=== PATIENT | female | born 1960 | race Caucasian/White ===

== ENCOUNTER 2021-11-09 09:13 | Outpatient (RCR) | payer SELFPAY ==
[2021-11-09 10:58] LABS: ABSOLUTE RETIC # 46 10e9/uL (24-90); BASOPHILS # (AUTO) 0.1 10^3/uL (0.0-0.1); BASOPHILS % (AUTO) 1 % (0-10); EOSINOPHILS # (AUTO) 0.3 10^3/uL (0.0-0.3); EOSINOPHILS % (AUTO) 3 % (0-10); HEMATOCRIT 34 % (35-52); HEMOGLOBIN 11.3 g/dL (11.5-16.0); LYMPHOCYTES # (AUTO) 3.8 10^3/uL (1.0-4.0); LYMPHOCYTES % (AUTO) 38 % (12-44); MEAN CORPUSCULAR HEMOGLOBIN 29 pg (25-34); MEAN CORPUSCULAR HGB CONC 33 g/dL (32-36); MEAN CORPUSCULAR VOLUME 88 fL (80-99); MEAN PLATELET VOLUME 10.4 fL (9.0-12.2); MONOCYTES # (AUTO) 0.5 10^3/uL (0.0-1.0); MONOCYTES % (AUTO) 6 % (0-12); NEUTROPHILS # (AUTO) 5.1 10^3/uL (1.8-7.8); NEUTROPHILS % (AUTO) 52 % (42-75); PLATELET COUNT 344 10^3/uL (130-400); RETICULOCYTE % 1.18 % (0.50-2.40); WHITE BLOOD COUNT 9.8 10^3/uL (4.3-11.0)
== END 2021-12-04 | disposition home or self-care (01) ==
LOC: ONC 09:13
PROVIDERS: ATTEND Internal Medicine Hematology & Oncology
DX: D64.9 Anemia, unspecified (principal)
CPT/HCPCS: 83615; 85025; 85045; G0463; 36415; 99214

== ENCOUNTER 2022-08-31 06:36 | Outpatient (CLI) | payer OTHER ==
[~2022-08-31] VITALS: Ht 157.5 cm; Wt 107.0 kg
[2022-09-07] MEDS ORDERED: CYAN-41 PO (10:05)
[2022-09-07] MEDS ORDERED: ATOR40TA70 PO (10:05)
[2022-09-07] MEDS ORDERED: FERR-84 PO (10:05)
[2022-09-07] MEDS ORDERED: LISI1TAB48 PO (10:05)
[2022-09-07] MEDS ORDERED: VNL75T PO (10:05)
[2022-09-07] MEDS ORDERED: METF-397 PO ×2 (10:05)
== END 2022-09-07 10:13 | disposition home or self-care (01) ==
LOC: PREOP 06:36
PROVIDERS: ATTEND Surgery
DX: Z01.818 Encounter for other preprocedural examination (principal)

== ENCOUNTER 2022-09-12 10:35 | Day surgery (SDC) | payer OTHER ==
[~2022-09-12] VITALS: Ht 158 cm; Wt 107.0 kg
[~2022-09-12 10:35] MED LIST: ATOR40TA70 PO; CYAN-41 PO; FERR-84 PO; LISI1TAB48 PO; METF-397 PO; VNL75T PO
[2022-09-12] MEDS ORDERED: LACTATED RINGERS 1,000 ML IV STA (10:36)
[2022-09-12] MEDS ORDERED: HURRICAINE EXT TUBE (BENZOCAINE) XX PRN (10:45)
[2022-09-12 10:48] VITALS: BP 148/77
[2022-09-12] MEDS ORDERED: PROPOFOL INJECTION 50 ML IV ONE (10:49)
[2022-09-12] MEDS ORDERED: MIDAZOLAM 2 MG/2 ML (VERSED) VIAL ONE (10:49)
--- NOTE | 2022-09-12 10:50 | Progress Note-Pre Operative ---
Pre-Operative Progress Note Date of Available H&P: Aug 25, 2022 Date H&P Reviewed: Sep 12, 2022 Time H&P Reviewed: 10:47 History & Physical: H&P Reviewed, Patient Examed, No changes noted Pre-Operative Diagnosis: Anemia, Screening colonoscopy LIAM HUTCHINSON DO Sep 12, 2022 10:49
--- NOTE | 2022-09-12 11:36 | Progress Note-Post Operative ---
Post-Operative Progess Note Surgeon (s)/Cupola Melter Helper (s) Surgeon LIAM HUTCHINSON DO Cupola Melter Helper: JEANNIE MaII Pre-Operative Diagnosis Anemia, Screening colonoscopy Post-Operative Diagnosis Esophagitis hiatal hernia int hemorrhoids Procedure & Operative Findings Date of Procedure 09/12/22 Procedure Performed/Findings EGD with biopsy Colonoscopy PROCEDURE NOTE: After informed consent was obtained, the patient was brought to the endoscopy suite, placed in bed in left lateral decubitus position. She was administered IV sedation by the ANIMATOR who then monitored vitals the entire time, heart rate, blood pressure and pulse ox and the scope was inserted down the mouth through the esophagus into the stomach. On the way down, noted some mild esophagitis, took a picture, pushed into the stomach, pushed past the antrum into the duodenum. Duodenum looked good. Pulled back and did a biopsy of antrum, then retroflexed the scope, saw hiatal hernia, took a picture of this and then pulled the scope into the GE junction, took another picture of the hiatal hernia and then did a biopsy of the GE junction. Pushed the scope back into the stomach, suctioned all the air out of the stomach. At this point pulled the scope up the esophagus and out the mouth. Switched camera, switched gloves, went down below and started the colonoscopy. Pushed all the way to about 160 cm and pushed into the cecum, took a picture of appendiceal orifice and noted the ileocecal valve. Then slowly withdrew the scope insufflating to look circumferentially at the saravia starting in the cecum, up the ascending colon to the hepatic flexure, then down the transverse colon, splenic flexure, into the descending colon down in the sigmoid and then into the rectal vault and retroflexed the scope. Took picture of the internal hemorrhoids. The patient tolerated the procedure and she recovered in the endoscopy suite. Recommended for repeat colonoscopy in 10 years Anesthesia Type IV sedation by ANIMATOR Estimated Blood Loss Estimated blood loss (mL): scant Specimens/Packing Specimens Removed antral bx GE jxn bx body of stomach bx LIAM HUTCHINSON DO Sep 12, 2022 11:36
[2022-09-12 11:37] VITALS: BP 121/75
--- NOTE | 2022-09-12 11:37 | Endoscopy Discharge Instruct ---
Endo Procedure/Findings Findings 1.: Gastritis 2.: Hiatal Hernia 3.: Internal Hemorrhoids Discharge Instructions - Activity: You might feel a little sleepy until tomorrow. This is due to the medicine you received to relax you. Until tomorrow, you should: NOT drive a car, operate machinery or power tools. NOT drink any alcoholic beverages. NOT make any important decisions or sign importortant papers. Do not return to work until tomorrow, unless otherwise instructed. Resume previous activities tomorrow. Diet: Start by taking liquids. If you tolerate liquids, advance to solid food. 1.: EGD in 3 years 2.: Colonscopy in 10 years Notify Physician - If you experience excessive bleeding, unusual abdominal pain, fever, or chest pain, contact your doctor immediately. LIAM HUTCHINSON DO Sep 12, 2022 11:37
[2022-09-12 11:42] VITALS: BP 121/76
[2022-09-12 11:47] VITALS: BP 126/78
[2022-09-12 11:50] VITALS: BP 126/78
--- NOTE | 2022-09-12 11:54 | Anesthesia-General Post-Op ---
MAC Patient Condition Mental Status/LOC: Same as Preop Cardiovascular: Satisfactory Nausea/Vomiting: Absent Respiratory: Satisfactory Pain: Controlled Complications: Absent Post Op Complications Complications None Follow Up Care/Instructions Patient Instructions None needed. Anesthesiology Discharge Order Discharge Order Patient is doing well, no complaints, stable vital signs, no apparent adverse anesthesia problems. No complications reported per nursing. FRANCISCA BARROSO DO Sep 12, 2022 11:54
[2022-09-12 12:19] VITALS: BP 126/78
== END 2022-09-12 12:20 | disposition home or self-care (01) ==
LOC: ENDO 10:35
PROVIDERS: ATTEND Surgery
DX: Z12.11 Encounter for screening for malignant neoplasm of colon (principal); K20.90 Esophagitis, unspecified without bleeding; K44.9 Diaphragmatic hernia without obstruction or gangrene; K64.8 Other hemorrhoids; E11.9 Type 2 diabetes mellitus without complications; D50.9 Iron deficiency anemia, unspecified; E66.9 Obesity, unspecified; Z68.41 Body mass index [BMI] 40.0-44.9, adult; Z79.84 Long term (current) use of oral hypoglycemic drugs; Z79.899 Other long term (current) drug therapy
CPT/HCPCS: 82947; 88305